=== PATIENT | female | born 1985 | race Two or more races ===

== ENCOUNTER 2022-05-02 18:22 | Inpatient (IN) | payer MEDICARE, MEDICAID ==
[~2022-05-02] VITALS: Ht 154.9 cm; Wt 91.8 kg
[2022-05-02] MEDS ORDERED: MORPHINE SULFATE INJ 2 MG/ml SYRG IV PRN (18:45)
[2022-05-02] MEDS ORDERED: NITROGLYCERIN 0.4 MG SL TAB SL PRN (18:45)
[2022-05-02 20:39] VITALS: BP 144/65
[2022-05-02] MEDS ORDERED: ATOR40TA52 PO (21:18)
[2022-05-02] MEDS ORDERED: ACET-6 PO (21:18)
[2022-05-02] MEDS ORDERED: METO5TAB5 PO (21:18)
[2022-05-02] MEDS ORDERED: HYDR50TA15 PO (21:18)
[2022-05-02] MEDS ORDERED: MET500T PO (21:18)
[2022-05-02] MEDS ORDERED: TRAZ50TA2 PO (21:18)
[2022-05-02] MEDS ORDERED: SEVE800T8 PO (21:18)
[2022-05-02] MEDS ORDERED: CIPR500T4 PO (21:18)
[2022-05-02] MEDS ORDERED: CLOP75TA70 PO (21:18)
[2022-05-02] MEDS ORDERED: CYCL-837 PO (21:19)
[2022-05-02] MEDS ORDERED: GLIP5TAB12 PO (21:20)
[2022-05-02] MEDS ORDERED: METF-370 PO (21:20)
[2022-05-02] MEDS ORDERED: NITR-87 PO (21:21)
[2022-05-02 22:00] VITALS: BP 153/78
[2022-05-03 05:00] VITALS: BP 101/61
[2022-05-03] MEDS ORDERED: ACETAMINOPHEN 500 MG TAB PO SCH (06:00)
[2022-05-03] MEDS ORDERED: VANCOMYCIN PER PHARMACY 0 MG IV SCH ×2 (08:30→15:45)
[2022-05-03] MEDS ORDERED: SODIUM CHL 0.9% 1000 ML BAG XX ONE (08:30)
[2022-05-03] MEDS ORDERED: PIPERACILLIN-TAZOB 2.25GM 50 ML IV SCH ×3 (08:52→14:00)
[2022-05-03 08:54] VITALS: BP 112/54
[2022-05-03] MEDS ORDERED: VANCOMYCIN 1GM/250ML 250 ML IV ONE ×2 (09:00→16:00)
[2022-05-03 09:59] LABS: Hematocrit 30.9 % (36.0-46.0); Hemoglobin 9.1 g/dL (12.2-16.2); Mean Corpuscular Hgb Conc. 29.6 g/dL (32.0-36.0); Mean Corpuscular Volume 91.2 fL (80.0-100.0); Red Blood Cells 3.38 10^6/uL (4.0-5.20); Red Cell Distribution Width 17.2 % (11.8-14.3)
[2022-05-03 10:16] LABS: White Blood Cell 42.7 10^3/uL (4.4-10.8)
[2022-05-03 10:17] LABS: Basophils % (manual) 0 (0.0-2.0); Blast Cells 0; Eosinophils % (manual) 0 (0-7); Metamyelocytes % 0; Myelocytes % 0; Promyelocytes % 0; Reactive Lymphocytes 0
[2022-05-03 10:21] LABS: Albumin 2.3 g/dL (3.4-5.0); Calcium 7.4 mg/dL (8.5-10.1)
[2022-05-03 10:25] LABS: Bilirubin, Total 1.4 mg/dL (0.2-1.0); Phosphorus 6.6 mg/dL (2.5-4.90); Total Protein 6.8 g/dL (6.4-8.2); Uric Acid 7.6 mg/dL (2.6-6.0)
[2022-05-03 10:28] LABS: BUN/Creatinine Ratio 7.4
[2022-05-03 10:50] LABS: INR 1.25 (0.9-1.15)
[2022-05-03 11:12] LABS: Band Neutrophils % (manual) 5; Lymphocytes % (manual) 5 (10.0-50.0); Monocytes % (manual) 3 (0-12)
[2022-05-03] MEDS ORDERED: ACCU-CHEK COMFORT CURVE STRIP VI SCH (11:30)
[2022-05-03] MEDS ORDERED: InsuLIN REG 1unit/0.01ml Soln (100units/ml) SC SCH ×2 (11:30→22:00)
[2022-05-03] MEDS ORDERED: DEXTROSE (50%) 50ML SYRG IV PRN (11:30)
[2022-05-03] MEDS ORDERED: traMADol HCL 50 MG TAB PO PRN (11:30)
[2022-05-03] MEDS ORDERED: ACETAMINOPHEN 500 MG TAB PO PRN (11:30)
[2022-05-03 13:00] VITALS: BP 123/41
[2022-05-03] MEDS ORDERED: HYDROcodone-ACET 7.5/325MG TAB PO PRN (13:15)
[2022-05-03] MEDS ORDERED: SEVELAMER 800 MG TAB PO SCH (14:00)
[2022-05-03] MEDS ORDERED: hydrALAZINE HCL 25 MG TAB PO SCH (14:00)
[2022-05-03] MEDS ORDERED: fentaNYL CITRATE 100 MCG/2 ML VL ONE (16:24)
[2022-05-03] MEDS ORDERED: MIDAZOLAM HCL 2MG/2ML 2ml VIAL (1mg/ml) ONE (16:24)
[2022-05-03 16:54] VITALS: BP 116/61
[2022-05-03] MEDS ORDERED: LIDOCAINE 1%HCL (LOCAL ANESTH) 10 ML MDV ONE (17:00)
[2022-05-03] MEDS ORDERED: PROPOFOL 10 MG/ML 20 ML IV ONE (17:04)
[2022-05-03] MEDS ORDERED: SUCCINYLCHOLINE CHLORIDE 20 MG/ML 10ML VIAL IV ONE (17:23)
[2022-05-03 17:45] VITALS: BP 83/47
[2022-05-03] MEDS ORDERED: DAPTOmycin 400 MG in SODIUM CHL 0.9% 50 ML IV SCH (18:00)
[2022-05-03] MEDS ORDERED: SODIUM BICARBONATE 8.4 % INJ 50ML VIAL IV ONE (18:05)
[2022-05-03] MEDS ORDERED: CALCIUM CHLOR(10%) 100MG/ML 10ML SYRINGE IV ONE (18:05)
[2022-05-03] MEDS ORDERED: EPINEPHrine HCL 1 MG/10 ML SYRG IV ONE (18:05)
[2022-05-03] MEDS ORDERED: EPINEPHrine HCL 1 MG/1 ML AMP ONE (19:08)
[2022-05-03] MEDS ORDERED: ATROPINE SULFATE 0.4 MG/1 ML VIAL ONE (19:08)
[2022-05-03] MEDS ORDERED: EPOETIN ALFA-EPBX 10,000 UNIT/1ML VIAL SC ONE (21:00)
[2022-05-03] MEDS ORDERED: ATORVASTATIN 20 MG TAB PO SCH (22:00)
[2022-05-04] MEDS ORDERED: ASPirin-EC 81 mg tab PO SCH (10:00)
== END 2022-05-03 18:06 | DRG 299 ==
LOC: TELE-WESTW 18:45
PROVIDERS: ADMIT Internal Medicine Nephrology; ATTEND Hospitalist
PROC: 5A1D70Z Performance of Urinary Filtration, Intermittent, Less than 6 Hours Per Day (ICD-10-PCS; 2022-05-03)
PROC: 5A12012 Performance of Cardiac Output, Single, Manual (ICD-10-PCS; principal; 2022-05-03 17:01)
DX: E10.52 Type 1 diabetes mellitus with diabetic peripheral angiopathy with gangrene (principal); I46.9 Cardiac arrest, cause unspecified; I50.23 Acute on chronic systolic (congestive) heart failure; N18.6 End stage renal disease; I13.2 Hypertensive heart and chronic kidney disease with heart failure and with stage 5 chronic kidney disease, or end stage renal disease; M86.8X7 Other osteomyelitis, ankle and foot; E66.01 Morbid (severe) obesity due to excess calories; I35.8 Other nonrheumatic aortic valve disorders; Z99.2 Dependence on renal dialysis; D63.1 Anemia in chronic kidney disease; Z20.822 Contact with and (suspected) exposure to COVID-19; E10.22 Type 1 diabetes mellitus with diabetic chronic kidney disease; E10.319 Type 1 diabetes mellitus with unspecified diabetic retinopathy without macular edema; E10.65 Type 1 diabetes mellitus with hyperglycemia; Z68.38 Body mass index [BMI] 38.0-38.9, adult; E78.5 Hyperlipidemia, unspecified; H54.61 Unqualified visual loss, right eye, normal vision left eye; I35.0 Nonrheumatic aortic (valve) stenosis; J43.9 Emphysema, unspecified; E10.69 Type 1 diabetes mellitus with other specified complication; Z79.4 Long term (current) use of insulin; Z82.49 Family history of ischemic heart disease and other diseases of the circulatory system; Z83.3 Family history of diabetes mellitus
CPT/HCPCS: 36415; 71045; 73718; 80053; 82306; 82962; 83880; 83970; 84100; 84484; 84550; 84702; 85007; 85027; 85610; 85730; 86850; 86900; 86901; 87040; 87081; 87340; 90935; 92950; 93005; 93306; 93925; G0378; J0171; J0330; J0461; J1815; J2001; J2250; J2543; J2704